=== PATIENT | male | born 1955 | race Caucasian/White ===

== ENCOUNTER 2019-03-01 11:57 | Inpatient (IN) ==
[2019-03-01] MEDS ORDERED: ZOSYN 3.375 GM in NS 50 ML IV SCH (13:30)
[2019-03-01] MEDS: PROTONIX IV SCH (14:45)
[2019-03-01] MEDS: LEVAQUIN 500 MG/D5W 500 MG/100 ML IVPB IV SCH (14:45)
[2019-03-01] MEDS: SOLU-MEDROL IV SCH ×2 (14:46→20:55)
[2019-03-01] MEDS: LOVENOX SUBQ SCH (14:46)
[2019-03-01 14:51] LABS: ALLEN TEST YES; BE 2.8 mmoll (-3.0-3.0); BLOOD TYPE ARTERIAL; HCO3-(ACT) 26.9 mmoll (20.0-26.0); METHB 1.5 % (0.0-1.5); O2(CT) 19.5 mL/dL (15.0-23.0); O2HB 90.8 % (95.0-99.0); PCO2(98.6) 40 mmHg (35-45); PO2(98.6) 74 mmHg (60-100); SAMPLE BLOOD; SAO2 97.7 % (95.0-100.0); THB 15.3 g/dL (11.5-17.4); pH(98.6) 7.44 (7.35-7.45)
[2019-03-01 14:52] LABS: MODALITY ROOM AIR
[2019-03-01 15:46] LABS: URINE SOURCE VOIDED
--- NOTE | 2019-03-01 15:48 | Diag Imaging Result Doc PS360 ---
CHEST-2 VIEWS - 03/01/2019 INDICATION: SOB COMPARISON: CT 02/28/2019 FINDINGS: There is severe pulmonary emphysema. There is some scarring in the lung bases. No definite infiltrates. Heart size is normal. IMPRESSION: Severe COPD with pulmonary scarring. Electronically signed by Les Cook 03/01/2019 3:46 PM
[2019-03-01 15:49] LABS: BILIRUBIN URINE NEGATIVE (NEGATIVE); BLOOD URINE NEGATIVE (NEGATIVE); COLOR YELLOW; GLUCOSE URINE NEGATIVE (NEGATIVE); KETONE URINE NEGATIVE (NEGATIVE); LEUKOCYTES URINE NEGATIVE (NEGATIVE); NITRITE URINE NEGATIVE (NEGATIVE); PH URINE 5.5; PROTEIN URINE 30 mg/dL (NEGATIVE); SP GRAVITY URINE 1.043; TURBIDITY URINE CLEAR (CLEAR); UR EPITHELIAL CELLS <10 /HPF (<10); URINE BACTERIA NEGATIVE /HPF; URINE RBC <10 /HPF (<10); URINE WBC <10 /HPF (<10); UROBILINOGEN URINE NORMAL (NORMAL)
--- NOTE | 2019-03-01 16:04 | EKG Report ---
Test Performed on : 03/01/2019 3:16:39 PM Test Reason : chest pain Blood Pressure : / mmHG Vent. Rate : 097 BPM Atrial Rate : 097 BPM P-R Int : 134 ms QRS Dur : 082 ms QT Int : 326 ms P-R-T Axes : 086 -89 081 degrees QTc Int : 414 ms Normal sinus rhythm. Left axis deviation Pulmonary disease pattern Abnormal ECG No previous ECGs available Confirmed by Glenys BLACKMON, Louis ([id number]) on 03/02/2019 8:46:02 AM
[2019-03-01] MEDS: CLINIMIX E 4.25%-5% SOLUTION 1,000 ML IV SCH (16:11)
[2019-03-01 16:33] LABS: BASO# 0.05 X1000 (0.0-0.2); BASO% 0.5 % (0.0-0.8); EOS# 0.03 X1000 (0.0-0.7); EOS% 0.3 % (0.0-10.0); HEMATOCRIT 48.5 % (42.0-52.0); HEMOGLOBIN 16.2 g/dL (14.0-18.0); IMM GRAN# 0.02 X1000 (0.0-0.04); IMM GRAN% 0.2 % (0.0-0.5); LYMPH# 1.93 X1000 (1.2-3.4); LYMPH% 19.6 % (20.5-51.1); MCH 32.5 PG (27-31); MCHC 33.4 g/dL (33-37); MCV 97.2 FL (81-99); MONO# 0.77 X1000 (0.11-0.59); MONO% 7.8 % (1.7-9.3); MPV 10.9 FL (7.4-10.4); NEUT# 7.05 X1000 (1.4-6.5); NEUT% 71.6 % (42.2-75.2); PLT 195 X1000 (130-400); RBC 4.99 XMIL (4.7-6.1); WBC 9.85 X1000 (4.8-10.8)
[2019-03-01 16:48] LABS: AGAP 17; ALB/GLOB RATIO 1.8; ALBUMIN 4.2 g/dL (3.5-5.0); ALKALINE PHOSPHATASE 95 U/L (32-122); BUN 15 mg/dL (8-22); CALCIUM 9.8 mg/dL (8.8-10.2); CHLORIDE 100 mmol/L (98-107); COSMO 283; ESTIMATED GFR > 60; GLUCOSE 141 mg/dL (70-104); GOT 30 U/L (10-34); GPT 29 U/L (10-44); POTASSIUM 4.5 mmol/L (3.5-5.1); SODIUM 140 mmol/L (136-145); TCO2 23 mmol/L (25-35); TOTAL BILIRUBIN 0.54 mg/dL (0.20-1.00); TOTAL PROTEIN 6.6 g/dL (6.3-8.3)
[2019-03-01] MEDS: DUONEB (A & A) INH PRN (18:45)
[2019-03-01] MEDS: PRAVACHOL PO SCH (20:55)
--- NOTE | 2019-03-01 21:26 | HISTORY AND PHYSICAL ---
CHIEF COMPLAINT: 1. Shortness of breath, cough, wheezing. 2. Weight loss of 40 pounds. 3. Intermittent blackout spells and no chest pain. HISTORY OF PRESENT ILLNESS: He is a 63-year-old white gentleman who was evaluated for the last 2 weeks with above symptoms, chest x-ray with severe COPD. CT of the chest showed 1.2 cm vague opacity in the left lower lobe. The rest of the labs are unremarkable. Basically admitted to the hospital for substantial weight loss and acute COPD exacerbation, rule out cardiac disease. Echocardiography in my office showed normal LV systolic function, enlarged right ventricle, ejection fraction 60%. PAST MEDICAL HISTORY: 1. COPD. 2. Hypertension. 3. Left inguinal hernia. 4. Hyperlipidemia. 5. Peripheral vascular disease. 6. Rhinophyma. 7. Tobacco abuse. 8. Abnormal CT with 1.2 cm nodule in the left lower lobe. PAST SURGICAL HISTORY: Bilateral cataract surgery. MEDICATIONS: Pravastatin 40 daily, ProAir and Trilegy. ALLERGIES: Of penicillin. SOCIAL HISTORY: with 3 children. Occupation: Working in [employer]. Now he is retired living in [place]. Smoking half a pack a day for the last 20 years. FAMILY HISTORY: Father , cause was not known. Mom of [place]. Siblings had stomach cancer. HEALTH MAINTENANCE: Physical exam 02/15/2019. Flu is declined. He is due for pneumococcal vaccine. Colonoscopy 04/[address] Guerrero. Last prostate exam 02/22/2019 is unremarkable. REVIEW OF SYSTEMS: HEENT: No headache. No vision problem. No earache. No sore throat. Neck: No neck pain. No goiter. No lymphadenopathy. Cardiopulmonary: No chest pain. Intermittent shortness of breath, cough and wheezing. Gastrointestinal: No nausea, vomiting, abdominal pain. No bleeding per rectum. Genitourinary: No history of hesitancy, frequency, dysuria, hematuria. No claudication symptoms. No back pain. Neurologic Exam: No focal symptoms or seizures or weakness. PHYSICAL EXAMINATION: GENERAL: He is in mild respiratory distress. VITAL SIGNS: Temperature is 98.5 degrees, pulse is 89, blood pressure 110/70, room air 97%. Very cachectic, malnourished. HEENT: Atraumatic, normocephalic. Tongue is in midline. RESPIRATORY: Using neck muscles for breathing. Poor air entry. CARDIOVASCULAR: Distant heart sounds. ABDOMEN: Belly is soft, nontender. Good bowel sounds. Prostate is normal heme-negative stool. EXTREMITIES: Pulses are palpable. Trace edema noted. NEUROLOGICAL: Nonfocal. INVESTIGATIONS: CBC: White cell count 9.8, hematocrit 48, platelets 195,000. ABG: pH is 7.44, pCO2 40, pO2 74 on room air. Carboxyhemoglobin 5.5. SMA 7 is normal. Glucose 141. ProBNP, cardiac enzymes were normal. Urinalysis is clear. CT of the chest. Discussed the findings with severe COPD with 1.2 cm nodular opacity in the left side, left lower lobe. ASSESSMENT AND PLAN: 1. A 63-year-old white male admitted to the hospital for acute chronic obstructive pulmonary disease exacerbation. Plan is carboxyhemoglobin is high. Nicotine cessation programs. 2. Pneumococcal vaccine 13 prior to the discharge. 3. Oxygen as needed. Bronchodilators with Trilogy and IV Levaquin, IV steroids. 4. Intermittent syncope spells and rule out cardiac disease, schedule for myocardial perfusion scan with Lexiscan. 5. Schedule outpatient pulmonary function tests. 6. Reconcile home medications. 7. Nutrition consult for weight gain and [facility] 1 can b.i.d. and discussed the plan of care with family. Repeat the CT of the chest in 3 months. cc: Ozzie Hassan MD MTDD
[2019-03-02] MEDS: CLINIMIX E 4.25%-5% SOLUTION 1,000 ML IV SCH ×3 (00:54→21:41)
[2019-03-02] MEDS: SOLU-MEDROL IV SCH ×3 (05:29→21:41)
[2019-03-02] MEDS ORDERED: LEXISCAN ONE (09:59)
[2019-03-02] MEDS ORDERED: DOBUTAMINE 500/D5W 500 MG/250 ML IV.SOLN ONE (10:01)
[2019-03-02] MEDS ORDERED: ATROPINE SYRINGE ONE (10:32)
[2019-03-02] MEDS: PATIENT'S OWN MED INH SCH (11:35)
[2019-03-02] MEDS: PROTONIX IV SCH (12:55)
[2019-03-02] MEDS: LOVENOX SUBQ SCH (12:55)
[2019-03-02] MEDS: LEVAQUIN 500 MG/D5W 500 MG/100 ML IVPB IV SCH (12:55)
--- NOTE | 2019-03-02 15:18 | Diag Imaging Result Document ---
PROCEDURE NAME: MYOCARDIAL PERF SCAN, STR/REST - 03/02/2019 PROCEDURE PERFORMED: Dobutamine Cardiolite stress test. DESCRIPTION OF PROCEDURE: Dobutamine was infused per standard protocol to a target heart rate. Cardiolite was injected at that time. There was no chest pain. He has chronic shortness of breath and COPD. Stress electrocardiogram was negative for ischemia. Following the dobutamine infusion, Cardiolite was injected. There were 10.3 mCi of Cardiolite injected for the rest phase and 32 mCi of Cardiolite injected for the stress phase. Gated SPECT images were obtained in standard views. Images revealed significant chest wall attenuation. There is a low-grade, reversible perfusion defect in the in inferoseptal and inferoapical wall associated with significant attenuation as well as normal left ventricular systolic function. Would recommend clinical correlation. Left ventricular ejection fraction by gated SPECT was 81%. CONCLUSIONS: 1. No chest pain. 2. Negative dobutamine stress electrocardiogram. 3. Myocardial perfusion images reveal low-grade, reversible perfusion defect in the inferoseptal and inferoapical associated with normal wall motion and chest wall attenuation. Would recommend clinical correlation. 4. Left ventricular ejection fraction by gated SPECT was 81%. cc: MD Ozzie Miller MD
[2019-03-02] MEDS: PRAVACHOL PO SCH (21:41)
--- NOTE | 2019-03-02 21:49 | PROGRESS NOTE ---
DATE: 03/02/2019 SUBJECTIVE: The patient had no chest pain. Breathing is improved. REVIEW OF SYSTEMS: None reported. OBJECTIVE: Vital signs: Temperature is 97 degrees, pulse is 88, blood pressure is stable. He is not using accessory muscles of the neck Chest: Wheezing bilaterally. Cardiovascular: Heart sounds are very distant. Abdomen: Belly is soft, nontender. Neurological: No neurological deficits. ASSESSMENT AND PLAN: 1. Acute chronic obstructive pulmonary disease exacerbation. Continue bronchodilators as directed. 2. Intermittent syncope spells and tachycardia, rule out ischemic heart disease workup. Schedule for a myocardial perfusion scan. 3. Protein calorie malnutrition. IV PPN and Ensure Enclive 4. Deep venous thrombosis gastrointestinal prophylaxis as per order sheet. 5. Abnormal CT with the left lower lobe 1.2 cm lesion. I discussed with Dr. Cook. No suspicious lesion, but repeat in 3 months for stability. 6. Hyperlipidemia on Pravachol. 7. Inguinal hernia on the left side stable and will follow up. LEVEL OF DOCUMENTATION: 25 minutes cc: Ozzie Hassan MD MTDD
[2019-03-03] MEDS: CLINIMIX E 4.25%-5% SOLUTION 1,000 ML IV SCH ×3 (06:00→23:50)
[2019-03-03] MEDS: SOLU-MEDROL IV SCH ×3 (06:00→21:51)
[2019-03-03] MEDS: PROTONIX IV SCH (12:50)
[2019-03-03] MEDS: SODIUM CHLORIDE 0.9% INJ SCH (12:50)
[2019-03-03] MEDS: LEVAQUIN 500 MG/D5W 500 MG/100 ML IVPB IV SCH (12:50)
[2019-03-03] MEDS: LOVENOX SUBQ SCH (12:51)
[2019-03-03] MEDS: PATIENT'S OWN MED INH SCH (12:51)
--- NOTE | 2019-03-03 13:28 | CARDIOLOGY CONSULTATION ---
DATE: 03/03/2019 CHIEF COMPLAINT: Dyspnea. REASON FOR CONSULTATION: Abnormal myocardial perfusion stress test. HISTORY: Mr. Garcia is a 63-year-old, male, who presented to Dr. Hassan's office complaining of increasing dyspnea and also weight loss. He did not have any reported chest discomfort or abdominal discomfort. He has had a CT of the chest on February 28 that shows extensive vascular calcification in 3 coronary arteries, as well as very severe and advanced emphysema. History also includes some hypertension, some intermittent swelling of the lower extremities and hyperlipidemia. He has advanced COPD. SURGICAL HISTORY: Negative. FAMILY HISTORY: Positive for swelling of the legs in several members of the family. He seems to have familial lymphedema. SOCIAL HISTORY: He retired from [employer] in 2016. He worked 39 and 1/2 years there. He has smoked half a pack of cigarettes for many years. He is . He has 3 children. ALLERGIES: To penicillin. HOME MEDICATIONS: Include albuterol inhaler, fluticasone, losartan/hydrochlorothiazide and pravastatin. REVIEW OF SYSTEMS: Chronically short of breath. Progressive weight loss over the past several months. The patient was referred to have a stress test yesterday which was read by Dr. Ledesma as indicating a low-grade reversible perfusion defect in the inferoseptal and inferoapical portion of the left ventricle associated with normal wall motion and chest wall attenuation with normal ejection fraction of left ventricle. PHYSICAL EXAM: Vital Signs: Today blood pressure is 98/56, temperature 97.4 degrees, pulse 73, respirations 22. General: He is awake, alert, oriented, in no distress. He appears to be somewhat emaciated. His body mass index is 17.6. HEENT: Unremarkable. Chest: Diminished breath sounds with hyper- resonance to percussion. Heart: Sounds are distant. Regular. No gallop or murmur. Abdomen: Scaphoid. No hepatomegaly. Extremities: Showed 1+ bilateral ankle edema. Pulses are diminished. Neurological exam: Nonfocal. Moves 4 extremities. BLOOD WORK: 1. Blood gases in room air showed a pCO2 of 42, PO2 74, pH 7.44. 2. His sodium 140, potassium 4.5. BUN is 15, creatinine 1.0. ProBNP was normal at 46. X-RAYS: EKG from March 01 shows sinus rhythm, left axis deviation. He has a pulmonary disease pattern with an extreme left axis deviation. IMPRESSION: 1. Patient who presented with increasing dyspnea and progressive weight loss. CT scan of the chest shows severe advanced emphysema. The weight loss is probably explained on the basis of his advanced emphysema and consumption of calories out of proportion. 2. Abnormal myocardial perfusion stress test. There is a limited area of inducible ischemia. His global ejection fraction is normal. 3. Evidence of extensive coronary atherosclerosis on CT scan of the chest. 4. Malnutrition. Body mass index is 17.6. RECOMMENDATION.: Given this patient's poor general health with advanced emphysema and with malnutrition, I think that cardiac catheterization would be a bad idea. I will recommend to focus on trying to improve his nutritional status. He is not having chest pain. His ejection fraction is normal, and the area of inducible ischemia is very limited which portends as a whole a relatively fair prognosis. I strongly recommend to get a intensive care specialist in this case because this patient's emphysema is probably end-stage, and he needs to know that and take the necessary steps to adjust to the situation. Thank you for asking us to participate in his evaluation. cc: MD Ozzie Restrepo MD MTDD
[2019-03-03] MEDS: DUONEB (A & A) INH PRN (17:32)
--- NOTE | 2019-03-03 17:34 | PROGRESS NOTE ---
DATE: 03/03/2019 SUBJECTIVE: The patient complains of not able to sleep and no chest pain. Myocardial perfusion scan positive for subtle reversible ischemia and he continues improving. Decreased shortness of breath. PHYSICAL EXAMINATION: Vital Signs: Temperature 98 degrees, pulse 67, blood pressure is stable. HEENT: Within normal limits. Lungs: Poor air entry. Heart: Heart sounds are distant. Abdomen: Belly is soft, nontender. Neurologic: No neurological deficits. INVESTIGATIONS: Perfusion scan as discussed with the family. ASSESSMENT AND PLAN: 1. Acute chronic obstructive pulmonary disease exacerbation. Continue IV Levaquin, IV steroids, and bronchodilators. 2. Poor nutritional status. Continue on IV Clinimix. 3. Deep venous thrombosis and gastrointestinal prophylaxis as per order sheet. 4. Left inguinal hernia, stable. 5. Atypical syncope spells and shortness of breath. Nuclear medicine completely normal. Consult with Dr. Oconnor. 6. Out of the bed and also will do the pulmonary function tests after discharge. LEVEL OF DOCUMENTATION: 25 minutes. cc: Ozzie Hassan MD
[2019-03-03] MEDS: PRAVACHOL PO SCH (21:51)
[2019-03-03] MEDS: NON-FORMULARY BULK MED INH SCH (23:51)
[2019-03-04] MEDS: SOLU-MEDROL IV SCH ×4 (05:46→23:35)
[2019-03-04] MEDS: CLINIMIX E 4.25%-5% SOLUTION 1,000 ML IV SCH ×2 (08:24→19:45)
[2019-03-04] MEDS: NON-FORMULARY BULK MED INH SCH (09:00)
--- NOTE | 2019-03-04 12:34 | PROGRESS NOTE ---
DATE: 03/04/2019 SUBJECTIVE: I appreciated Dr. Oconnor's consult and, based on his comments, at this time he is not pursuing any further cardiac workup. Patient is asymptomatic. His breathing is slowly improving. OBJECTIVE: Vital Signs: On examination, temperature is 97.6, pulse 79, blood pressure is 115/66 on 2 L nasal cannula 100%. HEENT: Exam within normal limits. Poor air entry. Heart: Sounds are regular. Abdomen: Belly is soft, nontender. Neurologic: Nonfocal. ASSESSMENT AND PLAN: Acute chronic obstructive pulmonary disease exacerbation, stable. Continue Levaquin, intravenous steroids. cc: Ozzie Hassan MD
--- NOTE | 2019-03-04 12:35 | PROGRESS NOTE ---
DATE: 03/04/2019 Incomplete dictation from the previous one, redictating again. SUBJECTIVE: A 63-year-old white male came in with COPD exacerbation. Dr. Oconnor's consult appreciated. He is not pursuing any further cardiac workup. Currently, he is doing better. No chest pain. PHYSICAL EXAMINATION: Vital Signs: Vitals are stable, temperature is 97.6, pulse 79, blood pressure 115/66. HEENT: Within normal limits. Neck: Supple. No lymphadenopathy. Chest: Bilateral air entry. Heart: Sounds are regular. Abdomen: Belly is soft, nontender. Neurologic: No neurological deficits. ASSESSMENT AND PLAN: 1. Acute chronic obstructive pulmonary disease exacerbation. Continue on IV Levaquin, steroids, bronchodilators. 2. Protein calorie malnutrition. IV Clinimix. 3. Atypical chest pain. 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 4. Hyperlipidemia, on Pravachol. 5. Continue nutritional support and continue present treatment over the weekend. Will do outpatient pulmonary function tests and repeat CT of the chest in 3 months for follow-up on 1.2 cm nodule in the left lower lobe. LEVEL OF DOCUMENTATION: 25 minutes. cc: Ozzie Hassan MD
[2019-03-04] MEDS: LEVAQUIN 500 MG/D5W 500 MG/100 ML IVPB IV SCH (14:33)
[2019-03-04] MEDS: SODIUM CHLORIDE 0.9% INJ SCH (14:34)
[2019-03-04] MEDS: PROTONIX IV SCH (14:35)
[2019-03-04] MEDS: LOVENOX SUBQ SCH (14:35)
[2019-03-04] MEDS: PRAVACHOL PO SCH ×2 (19:45→23:34)
[2019-03-05] MEDS: SOLU-MEDROL IV SCH ×4 (05:12→21:51)
[2019-03-05] MEDS: CLINIMIX E 4.25%-5% SOLUTION 1,000 ML IV SCH ×2 (05:12→16:12)
[2019-03-05] MEDS: NON-FORMULARY BULK MED INH SCH (08:25)
--- NOTE | 2019-03-05 13:35 | PROGRESS NOTE ---
DATE: 03/05/2019 SUBJECTIVE: The patient is doing better, eating well. No complaints. EXAMINATION: Temperature is 98 degrees, pulse 77, blood pressure 150/71, 2 L 97%. HEENT exam within normal limits. Chest has bilateral air entry. Heart sounds are regular. Belly is soft, nontender. No obvious deficits. INVESTIGATIONS: None. ASSESSMENT AND PLAN: 1. Acute chronic obstructive pulmonary disease exacerbation, stable. Continue present treatment. 2. Abnormal CT. Repeat in 3 months. 3. We will schedule outpatient pulmonary function tests and pneumococcal vaccine, continue present treatment, and hopefully if he is stable, discharge in the morning. Discussed the plan of care with the at bedside. LEVEL OF DOCUMENTATION: 25 minutes. cc: Ozzie Hassan MD
[2019-03-05] MEDS: LOVENOX SUBQ SCH (14:25)
[2019-03-05] MEDS: SODIUM CHLORIDE 0.9% INJ SCH (14:25)
[2019-03-05] MEDS: PROTONIX IV SCH (14:25)
[2019-03-05] MEDS: LEVAQUIN 500 MG/D5W 500 MG/100 ML IVPB IV SCH (14:25)
[2019-03-05] MEDS: PRAVACHOL PO SCH (20:16)
[2019-03-06] MEDS: SOLU-MEDROL IV SCH (04:56)
[2019-03-06 07:49] VITALS: BP 124/76
[2019-03-06] MEDS ORDERED: PREVNAR 13 IM ONE (07:49)
--- NOTE | 2019-03-06 20:21 | DISCHARGE SUMMARY ---
ADMISSION DATE: 03/01/2019 DISCHARGE DATE: 03/06/2019 DISCHARGING DIAGNOSIS: Acute chronic obstructive pulmonary disease exacerbation. SECONDARY DIAGNOSIS: 1. 1.2 cm left lower lobe nodule. Follow up on CT of the chest in 3 months. 2. Atypical chest pain. 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 3. Left inguinal hernia. 4. Hypertension. 5. Rhinophyma. 6. Tobacco abuse. 7. Peripheral vascular disease. 8. Protein calorie malnutrition. CONSULTANTS: Dr. Oconnor. BRIEF HISTORY: Please see the H P that was done on 03/01/2019. In brief, he is a 63-year-old white gentleman who was admitted to the hospital with cough, shortness of breath, wheezing, weight loss 40 pounds. Prior workup is essentially unremarkable. HOSPITAL COURSE: 1. Acute COPD exacerbation. The patient was given oxygen, bronchodilators, IV steroids, IV antibiotics. The patient was given Trelegy 1 puff daily and albuterol/Atrovent nebulizers and Proventil as needed for breakthrough pain. Quit smoking. 2. Pneumococcal vaccine 13 was given prior to the discharge. 3. Abnormal CT. Recheck the 1.2 cm nodule in 3 months. 4. History of recurrent dizzy spells and syncope. Nuclear perfusion scan subtle reversible ischemia. Dr. Oconnor was not concerned because he did not have any chest pain. No EKG changes. Cardiac enzymes were normal. At this time continue to monitor. 5. Tobacco abuse, quit smoking. 6. Left inguinal hernia, stable. 7. The patient was given IV PPN, also given Periactin for increase the appetite and the Boost 1 can twice a day. LABS: CBC: White cell count 9.8, hematocrit 48, platelets 195,000. ABG: pH is 7.44, pCO2 40, pO2 74, carboxyhemoglobin 5.5 on room air. SMA-12: Sodium 140, potassium 4.5, BUN 15, creatinine 1.0, glucose 141. ProBNP, cardiac enzymes were normal. Urinalysis is clear. DISCHARGE INSTRUCTIONS: 1. Pneumococcal vaccine 13 03/06/2019. 2. Quit smoking. 3. Outpatient pulmonary function tests. 4. Next ProAir HFA q.6h as needed, Trelegy Ellipta 100/6.25/25 1 puff daily, pravastatin 40 mg daily, albuterol and Atrovent nebulizers q.4 as needed, potassium 20 mEq daily, Hyzaar 100/12.5 daily, Levaquin 500 daily, Medrol Dosepak, Periactin 4 mg p.o. b.i.d. 5. Follow up in my office in [address] of the chest in 3 months and outpatient pulmonary function test. cc: MD Jaquan Sullivan MD
== END 2019-03-06 09:27 | disposition home or self-care (01) | DRG 191 ==
LOC: DIRADM 11:57 → 4N 13:49
PROVIDERS: ADMIT Internal Medicine; ATTEND Internal Medicine
CPT/HCPCS: 71020; 71046; 78452; 80053; 81001; 82550; 82805; 83880; 85025; 86850; 86900; 86901; 90670; 93005; 93010; 93017; 94640; 94761; A9270; A9500; C9113; J0461; J1250; J1650; J1956; J2785; J2930; S0164

== ENCOUNTER 2019-06-15 16:06 | Inpatient (IN) ==
[2019-06-15 19:11] LABS: ALLEN TEST YES; BE 8.9 mmoll (-3.0-3.0); BLOOD TYPE ARTERIAL; HCO3-(ACT) 31.6 mmoll (20.0-26.0); METHB 1.1 % (0.0-1.5); PO2(98.6) 70 mmHg (60-100); SAMPLE BLOOD; SAO2 96.5 % (95.0-100.0); THB 15.2 g/dL (11.5-17.4); pH(98.6) 7.36 (7.35-7.45)
[2019-06-15 19:16] LABS: MODALITY CANNULA; O2HB 88.8 % (95.0-99.0); PCO2(98.6) 66 mmHg (35-45)
[2019-06-15 20:39] LABS: HEMATOCRIT 49.8 % (42.0-52.0); HEMOGLOBIN 15.8 g/dL (14.0-18.0); MCH 31.9 PG (27-31); MCHC 31.7 g/dL (33-37); MCV 100.6 FL (81-99); RBC 4.95 XMIL (4.7-6.1); RDW 14.3 % (11.5-14.5); WBC 10.34 X1000 (4.8-10.8)
[2019-06-15 21:03] LABS: AGAP 9; BUN 15 mg/dL (8-22); CALCIUM 9.6 mg/dL (8.8-10.2); CHLORIDE 99 mmol/L (98-107); CK PROFILE 28 U/L (24-204); COSMO 286; ESTIMATED GFR > 60; GLUCOSE 103 mg/dL (70-104); POTASSIUM 4.6 mmol/L (3.5-5.1); SODIUM 143 mmol/L (136-145); TCO2 35 mmol/L (25-35)
[2019-06-15 21:12] LABS: FREE T4 1.04 ng/dL (0.93-1.70); TSH 2.65 uIUmL (0.27-4.20)
[2019-06-15] MEDS: SODIUM CHLORIDE 0.9% INJ SCH (21:14)
[2019-06-15] MEDS: PROTONIX IV SCH (21:14)
[2019-06-15] MEDS: SOLU-MEDROL IV SCH (21:14)
[2019-06-15] MEDS: CLINIMIX E 4.25%-5% SOLUTION 1,000 ML IV SCH (21:15)
[2019-06-15] MEDS: LOVENOX SUBQ SCH (21:15)
[2019-06-15] MEDS: PERIACTIN PO SCH (21:15)
[2019-06-15] MEDS: PRAVACHOL PO SCH (21:15)
[2019-06-15] MEDS: LEVAQUIN 500 MG/D5W 500 MG/100 ML IVPB IV SCH (21:15)
--- NOTE | 2019-06-15 22:22 | HISTORY AND PHYSICAL ---
SUBJECTIVE: He has increasing shortness of breath. Continues to smoke. Swelling of feet. Swelling of left hand. HISTORY OF PRESENT ILLNESS: This is a 63-year-old white male. Basically had a CT of the chest after 3 months for follow-up on left lower lobe pulmonary nodules. In the meantime, then he had developed a left upper lobe spiculated mass. He continues to deteriorate. The patient has advanced COPD. He is in moderate distress. He has 4+ pedal edema. The patient's is at bedside. Basically admitted to the hospital for acute COPD exacerbation and evaluation of the left upper lobe mass. This could be rule out TB, rule out malignancy. He is high risk for pneumothorax. Family decided to treat aggressively with antibiotics and follow up. If things do not get better, we will decide at that point. PAST MEDICAL HISTORY: 1. Atypical chest pain. Last cardiac stress test was February 2019. 2. COPD, severe. FEV1/FVC ratio 0.3. 3. Hypertension. 4. Left inguinal hernia. 5. Hyperlipidemia. 6. Superficial femoral artery stenosis. 7. Tobacco abuse. PAST SURGICAL HISTORY: Bilateral cataract surgery. MEDICATIONS: Cyproheptadine 4 mg p.o. b.i.d., Hyzaar 100/12.5 daily, Atrovent nebulizers every 6 hours, potassium 20 mEq daily, pravastatin 40 mg daily, ProAir as needed, Trelegy 1 puff daily. ALLERGIES: Penicillin. SOCIAL HISTORY: . Has 3 children. Retired from [employer]. Lives in [place]. No alcohol. Smoking half a pack a day for several years. FAMILY HISTORY: Father at the age of 78. Cause was not known. Mom at 70 with [place]. Significant for stomach cancer. HEALTH MAINTENANCE: Last exam February 2019, colonoscopy April 2015. Pneumococcal-13 vaccine was given February 2019. REVIEW OF SYSTEMS: HEENT: No headache, no vision problem. No earache. No sore throat. Neck: No goiter. No lymphadenopathy. No bruit. Cardiopulmonary: Complains of shortness of breath. Chest pain. Has swelling of feet. GI: No nausea, vomiting, abdominal pain. Poor appetite. No weight gain. : No history of hesitancy, frequency, dysuria. Neurologic: No focal symptoms or weakness. PHYSICAL EXAMINATION: VITAL SIGNS: Temperature is 98.5. Heart tachycardic. Height 5 feet 10 inches, weight 160 pounds. On 2 L nasal cannula, 93%. HEENT: Atraumatic, normocephalic. Pupils equal and reactive to light. TMs are normal. Nose and throat within normal limits. NECK: Supple. No lymphadenopathy, no goiter. CHEST: Bilateral air entry. Expiratory wheezing, CARDIOVASCULAR: Distant heart sounds. ABDOMEN: Belly is soft, nontender. Good bowel sounds. EXTREMITIES: 2+ pedal edema. No obvious neurological deficits. INVESTIGATIONS: CBC: White count 10, hematocrit 49.8, platelets 328. ABG: pH of 7.36, pCO2 of 66, PO2 of 70. Oxyhemoglobin 88, carboxyhemoglobin 6.8, 24%. SMA 7 is normal. ProBNP 452. Cardiac enzymes were negative. Thyroid function normal. CEA is normal. ASSESSMENT: A 63-year-old white gentleman admitted to the hospital for acute on chronic obstructive pulmonary disease exacerbation. PLAN: The plan is as follows: 1. Continue oxygen 2 L. 2. IV steroids 60 mg every 8 hours, IV Levaquin, bronchodilators. Will not use excessive oxygen, since he is going to retain CO2. 3. Poor malnutrition. IV Clinimix. 4. Dependent edema. IV Lasix. 5. Deep venous thrombosis and gastrointestinal prophylaxis with Lovenox and Protonix. 6. Left upper lobe mass, new, spiculated. Rule out TB. PPD skin test, QuantiFERON test, and will follow up. CA level is normal. Family decided to treat it and repeat in 3 months. If no better, we will discuss at that time. 7. Reconcile home medications. 8. Vaccinations: Pneumococcal vaccine was given. 9. We will discuss with them advance directives. 10. Ongoing nicotine abuse. Nicotrol patch. cc: Ozzie Hassan MD
[2019-06-16] MEDS: SOLU-MEDROL IV SCH ×3 (04:21→21:31)
[2019-06-16] MEDS ORDERED: TUBERSOL ID ONE (07:32)
[2019-06-16] MEDS: DUONEB (A & A) INH PRN ×2 (07:32→15:21)
[2019-06-16] MEDS: CLINIMIX E 4.25%-5% SOLUTION 1,000 ML IV SCH ×3 (08:40→18:50)
[2019-06-16] MEDS: NICODERM PATCH TD SCH (08:41)
[2019-06-16] MEDS: PERIACTIN PO SCH ×2 (08:43→21:45)
[2019-06-16] MEDS: LASIX IV SCH (08:43)
[2019-06-16] MEDS: PRAVACHOL PO SCH (21:31)
[2019-06-16] MEDS: PROTONIX IV SCH (21:31)
[2019-06-16] MEDS: LOVENOX SUBQ SCH (21:32)
[2019-06-16] MEDS: LEVAQUIN 500 MG/D5W 500 MG/100 ML IVPB IV SCH (21:32)
--- NOTE | 2019-06-16 22:07 | PROGRESS NOTE ---
DATE: 06/16/2019 SUBJECTIVE: Patient is a little better. Still mild respiratory distress, getting breathing treatments. REVIEW OF SYSTEMS: None reported. PHYSICAL EXAMINATION: Vital Signs: Temperature is 97 degrees, pulse 102. Vitals are stable. 2 L nasal cannula. General: Cachectic. Lungs: Using accessory muscles of the neck for breathing. Very poor air entry. Heart: Sounds are very distant. Abdomen: Belly is soft, nontender. Extremities: There is 1+ pedal edema. LABS: Reported CEA level 2.5. ASSESSMENT AND PLAN: 1. Acute chronic obstructive pulmonary disease exacerbation. Quit smoking. 2. Nutrition. Intravenous Clinimix. 3. Poor appetite, on Periactin. 4. Deep venous thrombosis prophylaxis with Lovenox. 5. Edema due to cor pulmonale. Continue intravenous Lasix. 6. Chronic obstructive pulmonary disease exacerbation. Intravenous Levaquin. Intravenous steroids. 7. Gastrointestinal prophylaxis with intravenous Protonix. 8. Hyperlipidemia, on Pravachol. 9. Left upper lobe new lesion, suspicious for infectious versus malignancy. High risk for pneumothorax. Discussed with the family. Plan is rule out tuberculosis with a PPD skin test and QuantiFERON test, and continue intravenous antibiotics, and then re-evaluate in 3 months. If things will not improve, will discuss with the family. 10. Continue present treatment over the weekend. LEVEL OF DOCUMENTATION: 25 minutes. cc: Ozzie Hassan MD
[2019-06-17] MEDS: CLINIMIX E 4.25%-5% SOLUTION 1,000 ML IV SCH ×4 (00:13→19:16)
[2019-06-17] MEDS: SOLU-MEDROL IV SCH ×3 (05:42→22:31)
[2019-06-17] MEDS: PERIACTIN PO SCH ×2 (09:35→22:31)
[2019-06-17] MEDS: NICODERM PATCH TD SCH (09:35)
[2019-06-17] MEDS: LASIX IV SCH (09:35)
[2019-06-17] MEDS: FLUTICASONE INH SCH ×2 (10:12→10:31)
[2019-06-17] MEDS: [UNRECOGNIZED DRUG - OTHER] INH SCH ×2 (10:12→10:31)
[2019-06-17] MEDS: VILANTER INH SCH ×2 (10:12→10:31)
[2019-06-17] MEDS: UMECLIDIN INH SCH ×2 (10:12→10:31)
[2019-06-17] MEDS: DUONEB (A & A) INH PRN ×2 (10:31→15:37)
[2019-06-17 12:20] LABS: BLOOD TYPE ARTERIAL; SAMPLE BLOOD
[2019-06-17 12:21] LABS: ALLEN TEST NO; BE 14.7 mmoll (-3.0-3.0); HCO3-(ACT) 36.2 mmoll (20.0-26.0); METHB 0.9 % (0.0-1.5); O2(CT) 19.2 mL/dL (15.0-23.0); O2HB 90.6 % (95.0-99.0); PO2(98.6) 57 mmHg (60-100); SAO2 93.8 % (95.0-100.0); THB 15.1 g/dL (11.5-17.4); pH(98.6) 7.42 (7.35-7.45)
[2019-06-17 12:22] LABS: MODALITY CANNULA; PCO2(98.6) 66 mmHg (35-45)
--- NOTE | 2019-06-17 13:44 | PROGRESS NOTE ---
DATE: 06/17/2019 SUBJECTIVE: Mr. Garcia is a 63-year-old white gentleman with known case of COPD was admitted with bronchitis. He is getting IV Levaquin, as well as Clinimix. His lungs revealed minimal wheezing. Heart sounds are normal. Overall condition is stable. CBC is normal with pCO2 of 66, which probably is not unusual for him. I think we will repeat blood gases again on him and continue current management on him. His proBNP was 452. CEA level was 2.5. -9 cc: MD Ozzie Ferguson MD
[2019-06-17] MEDS: LEVAQUIN 500 MG/D5W 500 MG/100 ML IVPB IV SCH (22:30)
[2019-06-17] MEDS: PRAVACHOL PO SCH (22:31)
[2019-06-17] MEDS: PROTONIX IV SCH (22:31)
[2019-06-17] MEDS: LOVENOX SUBQ SCH (22:56)
[2019-06-18] MEDS: SOLU-MEDROL IV SCH ×3 (06:53→22:02)
[2019-06-18] MEDS: CLINIMIX E 4.25%-5% SOLUTION 1,000 ML IV SCH ×2 (06:53→18:54)
[2019-06-18] MEDS: UMECLIDIN INH SCH (07:51)
[2019-06-18] MEDS: VILANTER INH SCH (07:51)
[2019-06-18] MEDS: FLUTICASONE INH SCH (07:51)
[2019-06-18] MEDS: [UNRECOGNIZED DRUG - OTHER] INH SCH (07:51)
[2019-06-18] MEDS: NICODERM PATCH TD SCH (08:21)
[2019-06-18] MEDS: PERIACTIN PO SCH ×2 (08:21→22:02)
[2019-06-18] MEDS: LASIX IV SCH (08:21)
[2019-06-18] MEDS ORDERED: VANCOMYCIN IV PER PHARMACY MISC SCH (10:45)
--- NOTE | 2019-06-18 11:39 | PROGRESS NOTE ---
DATE: 06/18/2019 Mr. Garcia says he is feeling fine. His vital signs are stable. However, his blood gases look worse. His PO2 has dropped from 65 to 57, pCO2 is still the same 66, pH 7.42. He is on Levaquin, and I am going to add vancomycin. Repeat the chest x-ray and blood gases again cc: MD Ozzie Ferguson MD
[2019-06-18] MEDS ORDERED: VANCOMYCIN IV ONE (12:00)
[2019-06-18] MEDS ORDERED: NS IV ONE (12:00)
[2019-06-18 12:32] LABS: ALLEN TEST YES; BE 20.1 mmoll (-3.0-3.0); BLOOD TYPE ARTERIAL; HCO3-(ACT) 40.5 mmoll (20.0-26.0); METHB 1.5 % (0.0-1.5); O2(CT) 19.5 mL/dL (15.0-23.0); O2HB 93.1 % (95.0-99.0); PO2(98.6) 66 mmHg (60-100); SAMPLE BLOOD; SAO2 96.6 % (95.0-100.0); THB 14.9 g/dL (11.5-17.4); pH(98.6) 7.46 (7.35-7.45)
[2019-06-18 12:34] LABS: MODALITY CANNULA
[2019-06-18 12:35] LABS: PCO2(98.6) 68 mmHg (35-45)
[2019-06-18] MEDS: DUONEB (A & A) INH PRN (15:29)
[2019-06-18] MEDS: PROTONIX IV SCH (22:02)
[2019-06-18] MEDS: SODIUM CHLORIDE 0.9% INJ SCH (22:02)
[2019-06-18] MEDS: PRAVACHOL PO SCH (22:02)
[2019-06-18] MEDS: LEVAQUIN 500 MG/D5W 500 MG/100 ML IVPB IV SCH (22:02)
[2019-06-18] MEDS: LOVENOX SUBQ SCH (22:02)
[2019-06-19] MEDS: CLINIMIX E 4.25%-5% SOLUTION 1,000 ML IV SCH ×3 (06:27→18:43)
[2019-06-19] MEDS: SOLU-MEDROL IV SCH ×3 (06:27→21:45)
[2019-06-19 06:57] LABS: BASO# 0.01 X1000 (0.0-0.2); BASO% 0.1 % (0.0-0.8); HEMATOCRIT 42.3 % (42.0-52.0); HEMOGLOBIN 13.4 g/dL (14.0-18.0); LYMPH# 0.31 X1000 (1.2-3.4); LYMPH% 2.1 % (20.5-51.1); MCH 32.3 PG (27-31); MCHC 31.7 g/dL (33-37); MCV 101.9 FL (81-99); MONO# 0.46 X1000 (0.11-0.59); MONO% 3.1 % (1.7-9.3); MPV 10.6 FL (7.4-10.4); NEUT# 13.87 X1000 (1.4-6.5); NEUT% 94.7 % (42.2-75.2); PLT 253 X1000 (130-400); RBC 4.15 XMIL (4.7-6.1); RDW 13.5 % (11.5-14.5); WBC 14.65 X1000 (4.8-10.8)
[2019-06-19] MEDS: FLUTICASONE INH SCH (07:39)
[2019-06-19] MEDS: VILANTER INH SCH (07:39)
[2019-06-19] MEDS: UMECLIDIN INH SCH (07:39)
[2019-06-19] MEDS: [UNRECOGNIZED DRUG - OTHER] INH SCH (07:39)
--- NOTE | 2019-06-19 07:50 | Diag Imaging Result Doc PS360 ---
EXAM: CHEST-2 VIEWS HISTORY: Sob,copd TECHNIQUE: Chest two views COMPARISON: 03/01/2019 FINDINGS: The lungs are hyperexpanded. The pulmonary vessels are small. Increased AP diameter to the chest. Flattening of the diaphragm. No cardiomegaly. No consolidation. Right granuloma. Scarring in the upper left lung. IMPRESSION: Severe emphysema Electronically signed by Chaz Moran 06/19/2019 7:48 AM
[2019-06-19] MEDS: PERIACTIN PO SCH ×2 (09:45→21:46)
[2019-06-19] MEDS: LASIX IV SCH (09:45)
[2019-06-19] MEDS: NICODERM PATCH TD SCH (09:45)
[2019-06-19] MEDS: DUONEB (A & A) INH PRN (09:56)
[2019-06-19] MEDS: VANCOMYCIN 1.3 GM in NS 250 ML IV SCH (13:34)
--- NOTE | 2019-06-19 21:43 | PROGRESS NOTE ---
DATE: 06/19/2019 SUBJECTIVE: The patient is a little better and no complaints. OBJECTIVE: Vital signs: Temperature is 98 degrees. Vitals are stable. HEENT Exam: Within normal limits. Chest: Poor air entry. Cardiovascular: Distant heart sounds. Abdomen: Belly is soft, nontender. Extremities: No edema noted. DIAGNOSTIC DATA: PPD test was negative. Chest x-ray: Stable scarring in the left upper lobe. ASSESSMENT AND PLAN: 1. Acute chronic obstructive pulmonary disease exacerbation. Continue on Levaquin IV steroids, and vancomycin. 2. Deep venous thrombosis and gastrointestinal prophylaxis as per order sheet. Continue IV Lasix, Clinimix and left upper lobe pneumonia. PPD was negative. IGRA test was suboptimal and continue antibiotics if completely resolved in 3 months. Continue to observe. If not, consider biopsy and family is agreeable and quit smoking. LEVEL OF DOCUMENTATION: 25 minutes. cc: Ozzie Hassan MD MTDD
[2019-06-19] MEDS: LEVAQUIN 500 MG/D5W 500 MG/100 ML IVPB IV SCH (21:45)
[2019-06-19] MEDS: LOVENOX SUBQ SCH (21:45)
[2019-06-19] MEDS: PROTONIX IV SCH (21:46)
[2019-06-19] MEDS: PRAVACHOL PO SCH (21:46)
[2019-06-20] MEDS: CLINIMIX E 4.25%-5% SOLUTION 1,000 ML IV SCH ×3 (03:23→23:02)
[2019-06-20] MEDS: SOLU-MEDROL IV SCH ×3 (04:40→23:02)
[2019-06-20] MEDS: [UNRECOGNIZED DRUG - OTHER] INH SCH (08:02)
[2019-06-20] MEDS: FLUTICASONE INH SCH (08:02)
[2019-06-20] MEDS: VILANTER INH SCH (08:02)
[2019-06-20] MEDS: UMECLIDIN INH SCH (08:02)
[2019-06-20] MEDS: LASIX IV SCH (08:40)
[2019-06-20] MEDS: PERIACTIN PO SCH ×2 (08:40→21:00)
[2019-06-20] MEDS: NICODERM PATCH TD SCH (08:40)
[2019-06-20] MEDS: VANCOMYCIN 1.3 GM in NS 250 ML IV SCH (11:57)
[2019-06-20] MEDS: DUONEB (A & A) INH PRN (19:36)
[2019-06-20] MEDS ORDERED: PROTONIX PO SCH (20:00)
[2019-06-20] MEDS: LEVAQUIN 500 MG/D5W 500 MG/100 ML IVPB IV SCH (21:00)
[2019-06-20] MEDS: PRAVACHOL PO SCH (21:00)
--- NOTE | 2019-06-20 22:17 | PROGRESS NOTE ---
DATE: 06/20/2019 SUBJECTIVE: The patient is doing better, eating well. Decreased shortness of breath. OBJECTIVE: Vital signs: Temperature is 97 degrees. Vitals are stable. HEENT: Within normal limits. Lungs: Poor air entry. Heart: Sounds are regular. Abdomen: Belly is soft, nontender. Extremities: Decreased edema. ASSESSMENT AND PLAN: 1. Chronic obstructive pulmonary disease with left upper lobe scarring with infiltrate. Continue present treatment with Levaquin and vancomycin. Currently on IV steroids. 2. Chronic tobacco abuse. Nicotrol patches. 3. Deep venous thrombosis and gastrointestinal prophylaxis as per order sheet. 4. Continue IV Clinimix, IV Lasix. PPD test was negative. Continue oxygen 2 L. Quit smoking. Continue outpatient antibiotics and then repeat the chest x-ray in my office in 10 days, and repeat the chest in 3 months. Based on that, further recommendations will be followed. LEVEL OF DOCUMENTATION: 25 minutes. cc: Ozzie Hassan MD
[2019-06-20] MEDS: LOVENOX SUBQ SCH (23:02)
[2019-06-21] MEDS: UMECLIDIN INH SCH (07:46)
[2019-06-21] MEDS: VILANTER INH SCH (07:46)
[2019-06-21] MEDS: [UNRECOGNIZED DRUG - OTHER] INH SCH (07:46)
[2019-06-21] MEDS: FLUTICASONE INH SCH (07:46)
[2019-06-21 08:15] VITALS: BP 119/73
[2019-06-21] MEDS: SOLU-MEDROL IV SCH (08:49)
[2019-06-21] MEDS: CLINIMIX E 4.25%-5% SOLUTION 1,000 ML IV SCH (08:51)
[2019-06-21] MEDS: LASIX IV SCH (08:51)
[2019-06-21] MEDS: NICODERM PATCH TD SCH (08:52)
[2019-06-21] MEDS: PERIACTIN PO SCH (08:52)
--- NOTE | 2019-06-24 23:54 | DISCHARGE SUMMARY ---
ADMISSION DATE: 06/15/2019 DISCHARGE DATE: 06/21/2019 DISCHARGING DIAGNOSIS: 1. Acute chronic obstructive pulmonary disease exacerbation. 2. Left upper lobe opacity, new onset spiculated lesions. 3. Severe chronic obstructive pulmonary disease. FEV1/FVC ratio 0.3. 4. Hypertension. 5. Left inguinal hernia. 6. Hyperlipidemia. 7. Edema due to cor pulmonale. 8. Peripheral arterial disease with superficial femoral artery stenosis, both sides. 9. Ongoing tobacco abuse. 10. Protein calorie malnutrition. BRIEF HISTORY: Please see the H and P that was done on 06/15/2019. In brief, he is a 63-year-old white male who was seen in my office, shortness of breath, cough, wheezing, swelling of left hand, both legs. He has a follow-up CT from the previous admission, showed new onset of left upper lobe opacity. The etiology was not clear. This could be underlying infiltrate versus mass. He has severe emphysema. The patient basically admitted to the hospital with IV antibiotics and followup workup. Family agreed to treat with antibiotics, if the lesion does not subside in 3 months we will discuss the options at that time for CT-guided biopsy. He will be high risk for having tension pneumothorax. QuantiFERON test was negative. PPD was negative. Prior to this, during this admission, the treatment was optimized for COPD, and also IV Lasix was given, IV Clinimix was given. He was eating very well. Pneumococcal vaccine-13 was 03/06/2019. LABS: During this admission as follows. CBC: White cell count 14, hematocrit 42, platelets 253,000. ABG: pH is 7.46, pCO2 is 68, pO2 is 66 on 28%. SMA-7: LFTs are normal. Carcinoembryonic antigen 2.5. ProBNP 452. QuantiFERON test was negative. PPD was negative. CT of the chest as an outpatient, new opacity in left upper lobe. There are nodular opacities in the lower lobe which are stable from the previous admission. The mass in the left upper lobe is irregular. Even if it is cancer, patient is a poor candidate for further treatment. DISCHARGE INSTRUCTIONS ARE FOLLOWS: ProAir 1 puff q.6 hours as needed, trilogy 1 puff daily, pravastatin 40 daily, DuoNeb q.6 hours, Hyzaar 100/12.5 daily, potassium 20 mEq daily, Periactin 4 mg p.o. b.i.d., aspirin 81 mg daily, Levaquin 500 daily for 10 days. Follow up in my office for chest x-ray and CT of the chest in 2 months. cc: Ozzie aHssan MD
== END 2019-06-21 09:33 | disposition home or self-care (01) | DRG 191 ==
LOC: DIRADM 16:06 → 4N 16:44
PROVIDERS: ADMIT Internal Medicine; ATTEND Internal Medicine